=== PATIENT | male | born 1975 | race Caucasian/White ===

== ENCOUNTER 2017-02-10 10:12 | Emergency (ER) | payer MEDICARE ==
[~2017-02-10] VITALS: Ht 170.2 cm; Wt 70.3 kg
[2017-02-10 10:39] VITALS: BP_SYST 123
--- NOTE | 2017-02-10 10:44 | NUR ---
Pt to bed 3
--- NOTE | 2017-02-10 10:50 | NUR ---
Pt presents to ED with rt shoulder pain. Reports pain started 8 days ago- after he "slept wrong". Pt reports seeing a chiropractor yesterday and an accupunctuist a "couple days" ago. Pt reports pain is 0/10 when sitting still, 6/10 with movement. Pt is able to turn head with full ROM. Able to raise right arm slowly. Pt is A&O x4. No acute distress. Addendum: 02/10/17 at 1110 by [email or web address] No deformities noted. No other complaints/injury per pt or noted.
--- NOTE | 2017-02-10 10:55 | NUR ---
ER at bedside examining patient.
[2017-02-10] MEDS ORDERED: CARISOPRODOL 350 MG TABLET PO ONE (11:15)
[2017-02-10] MEDS ORDERED: KETOROLAC TROMETHAMINE 60 MG/2 ML VIAL IM ONE (11:15)
[2017-02-10] MEDS ORDERED: DEXAMETHASONE SOD PHOSPHATE 10 MG/ML VIAL IM ONE (11:15)
--- NOTE | 2017-02-10 11:38 | NUR ---
Pt to Radiology for xray via w/c
[2017-02-10 12:43] VITALS: BP_SYST 120
--- NOTE | 2017-02-10 12:43 | NUR ---
Patient given written and verbal discharge instructions and verbalizes understanding. ER MD discussed with patient the results and treatment provided.Patient in stable condition. ID arm band removed. Rx of Ibuprofen and Soma given. Patient educated on pain management and to follow up with PMD within 4-5 days. Opportunity for questions provided and answered.
== END 2017-02-10 12:43 | disposition home or self-care (01) ==
LOC: SED 10:12
DX: M43.6 Torticollis (principal); R03.0 Elevated blood-pressure reading, without diagnosis of hypertension; Z88.6 Allergy status to analgesic agent; Z88.0 Allergy status to penicillin
CPT/HCPCS: 72040; 96372; 99284; J1100; J1885